=== PATIENT | female | born 1950 | race Caucasian/White ===

== ENCOUNTER 2017-01-22 19:51 | Observation (INO) ==
[2017-01-22] MEDS ORDERED: SODIUM CHLORIDE 0.9% 500 ML IV STA (20:58)
[2017-01-22] MEDS ORDERED: MORPHINE 2 MG/1 ML SYRINGE IV STA (20:58)
[2017-01-22] MEDS ORDERED: PANTOPRAZOLE 40 MG VIAL IV STA (20:58)
[2017-01-22] MEDS ORDERED: NITROGLYCERIN 2% OINT 1 INCH/GM PACK TOP STA (20:58)
[2017-01-22] MEDS ORDERED: ONDANSETRON 4 MG/2 ML VIAL IV STA (20:58)
[2017-01-22] MEDS ORDERED: ALUM/MAG/SIMETH/LIDO VISC 1:1 30 ML BOTTLE PO STA (20:58)
[2017-01-22] MEDS ORDERED: ASPIRIN 325 MG TABLET PO STA (20:58)
[2017-01-22] MEDS ORDERED: METOPROLOL TARTRATE 25 MG TABLET PO STA (20:58)
--- NOTE | 2017-01-22 21:04 | EKG Report ---
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
[2017-01-22 21:17] LABS: Basophils # 0.1 10*3/uL (0.0-0.2); Basophils % 0.5 % (0.0-0.8); Eosinophils # 0.2 10*3/uL (0.0-0.87); Eosinophils % 1.9 % (0.00-10.9); Hematocrit 40.4 VOL% (35.7-47.0); Hemoglobin 13.8 GM/DL (12.0-16.0); Immature Granulocytes % 0.4 %; Immature Granulocytes Absolute 0.04 #; Lymphocytes # 1.9 10*3/uL (1.4-4.0); Lymphocytes % 20.3 % (21.3-54.2); Mean Corpuscular HGB Conc 34.2 GM/DL (32-36); Mean Corpuscular Hemoglobin 31 PG (27-34); Mean Platelet Volume 10.3 FL (9.6-12.0); Monocytes # 0.7 10*3/uL (0.11-0.8); Monocytes % 7.5 % (1.7-12.7); Neutrophils # 6.6 10*3/uL (1.4-7.4); Neutrophils % 69.4 % (38.7-73.9); Platelet Count 297 T/CUMM (130-400); Red Blood Count 4.39 MC/CUMM (3.8-5.5); White Blood Count 9.5 T/CUMM (4-12)
[2017-01-22 21:21] LABS: Alanine Aminotransferase 26 U/L (13-56); Albumin 3.9 G/DL (3.4-5.0); Alkaline Phosphatase 137 U/L (45-117); Aspartate Amino Transferase 19 U/L (0-37); Bilirubin,Total < 0.39 MG/DL (0.2-1.0); Blood Urea Nitrogen 12 MG/DL (7-18); Calcium 9.3 MG/DL (8.5-10.1); Glucose 136 MG/DL (74-106); Magnesium 2.4 MG/DL (1.8-2.4); Osmolality,Calculated 284.1 MOS/KG (273-304); Potassium 3.5 MMOL/L (3.5-5.1); Sodium 142 MMOL/L (136-145); Total Protein 7.5 G/DL (6.4-8.3)
[2017-01-22 21:26] LABS: D-Dimer 0.6 MG/L FEU; PT Patient Result 10.3 SECS
--- NOTE | 2017-01-22 21:32 | XRay Report ---
History: Chest pain Date: 01/22/2017 Study: Chest x-ray PA and lateral Comparison exam: September 02, 2010 The cardiac silhouette is not enlarged. The mediastinal contours are unchanged. The pulmonary vasculature is not engorged. The lungs are slightly hyperexpanded with some scattered emphysematous changes in the lungs. There is no acute infiltrate. There is no pleural effusion. Osseous structures are similar with mild thoracic spondylosis and suspected osteopenia. Impression: The lungs are slightly hyperexpanded as can be seen with COPD. There is no acute process compared to the previous study PROCEDURE INTERPRETED AT [facility] DEPARTMENT OF RADIOLOGY Final Report Signed by: Dr. Shirley Cabrera
[2017-01-22] MEDS ORDERED: NITROGLYCERIN 2% OINT 1 INCH/GM PACK TOP ONE (21:33)
[2017-01-22] MEDS ORDERED: PANTOPRAZOLE 40 MG VIAL IV ONE (21:33)
[2017-01-22] MEDS ORDERED: METOPROLOL TARTRATE 25 MG TABLET ONE (21:34)
[2017-01-22] MEDS ORDERED: ONDANSETRON 4 MG/2 ML VIAL ONE (21:34)
[2017-01-22] MEDS ORDERED: ASPIRIN 325 MG TABLET ONE (21:35)
[2017-01-22] MEDS ORDERED: ALUM/MAG/SIMETH/LIDO VISC 1:1 30 ML BOTTLE PO ONE (21:35)
[2017-01-22] MEDS ORDERED: MORPHINE 2 MG/1 ML SYRINGE ONE (21:35)
--- NOTE | 2017-01-22 22:27 | Emergency Department Note ---
ILea Emily, am scribing for, and in the presence of, Davion Barber MD 20: 59. IElisabeth Charles R, MD, personally performed the services described in this documentation, ascribed by Maria Isabel Tate in my presence, and it is both accurate and complete 227 . Arrival - Arrival Chief Complaint: Arrhythmia/Palpitations Stated Complaint: heart flutters ED Nursing Triage Note: pt states she is having some chest pressure and her heart feels like it fluttering. started about 3 months ago but today has chest discomfort Mode of Arrival: Ambulatory Limitations: No Limitations Source: Patient (k) Time Seen by Provider: 01/22/17 20:37 - History of Present Illness HPI Narrative: Pt is a 66 y/o female who came to ED with c/o "heart fluttering" that have been ongoing for a 3 months now. Pt states she doesn't have chest pain, just pressure sensation and notes "feeling funny" recently that started today, which was cause for concern to come in. Pt notes having pain in between shoulder blades and jawline numbness past few days. Pt notes that Thursday she was extremely hot and her GERD has come on more than nml. Pt takes transzene, aspirin, generic nexium. She reports having stress test years ago with nml results. Onset (ago): month(s) Consistency: constant Severity: mild Severity scale (1-10): 3 Quality: aching (pressure), other (racing) Date of Last Menstrual Period: hysty Allergies/Adverse Reactions: Allergies Allergy/AdvReac Type Severity Reaction Status Date / Time acetaminophen [From Lortab] Allergy Unknown Verified 07/15/16 15:12 ciprofloxacin [From Cipro] Allergy Unknown Verified 07/15/16 15:12 Gatifloxacin [From Tequin] Allergy Unknown Verified 07/15/16 15:12 hydrocodone [From Lortab] Allergy Unknown Verified 07/15/16 15:12 levofloxacin [From Levaquin] Allergy Unknown Verified 07/15/16 15:12 nitrofurantoin Allergy Unknown Verified 07/15/16 15:11 [From Macrobid] Home Medications: Home Medications Medication Instructions Recorded Confirmed Type Aspirin EC Tab 81 mg PO DAILY 01/22/17 01/22/17 History Clorazepate [Tranxene] 3.75 mg PO DAILY PRN 01/22/17 01/22/17 History Esomeprazole Magnesium [Nexium] 20 mg PO DAILY 01/22/17 01/22/17 History Review of System - Review of System 12 point system: reviewed and no additional remarkable complaints except as stated - Review of System Constitutional: Present: weakness ("feeling funny"). Absent: chills, fever Respiratory: Absent: cough, respiratory distress Cardiovascular: Present: palpitations ("heart flutters"). Absent: chest pain ( just chest pressure) Gastrointestinal: Absent: abdominal pain, nausea, vomiting Genitourinary female: Absent: dysuria Musculoskeletal: Present: upper back pain (between shoulder blades). Absent: arm pain, leg pain, neck pain Skin: Absent: rash Neurological: Present: numbness (jawline). Absent: headache, paresthesias, confusion Medical,Surgical,& Family Hx - Surgical History Surgical History: noncontributory - Family History Family History: noncontributory - Social History Smoking Status: Never smoker Frequency of Alcohol Use: None Type of Drug Use: None Marital Status: Lives With:: Spouse Functional capacity: independent ambulation Exam Vital Signs: Vital Signs Temperature 98.9 F 01/22/17 20:38 Pulse Rate 78 01/22/17 20:38 Respiratory Rate 20 01/22/17 20:38 Blood Pressure 169/100 01/22/17 20:38 O2 Sat by Pulse Oximetry 100 01/22/17 19:57 - General General appearance: alert, in no apparent distress - Head Head exam: Present: atraumatic, normocephalic - Eye Eye exam: Present: PERRL, EOMI - ENT ENT exam: Present: mucous membranes moist. Absent: mucous membranes dry - Neck Neck exam: Present: full ROM. Absent: tenderness - Chest Chest inspection: Present: symmetric chest wall rise. Absent: tenderness - Respiratory Respiratory exam: Present: normal lung sounds bilaterally. Absent: respiratory distress - Cardiovascular Cardiovascular exam: Present: irregular rhythm (slightly), normal heart sounds - Abdominal Exam Abdominal exam: Present: soft. Absent: tenderness - Extremities Exam Extremities exam: Present: full ROM. Absent: tenderness, pedal edema - Back Exam Back exam: Present: full ROM, tenderness (at mid back of T12) - Neurological Exam Neurological exam: Present: alert, oriented X3, CN II-XII intact. Absent: motor sensory deficit - Psychiatric Psychiatric exam: Present: normal affect, normal mood - Skin Skin exam: Present: warm, dry Course - Consultations Consultation #1: Hospitalist will admit patient Time: 22:35 Results - Labs CBC & BMP: 01/22/17 20:42 01/22/17 20:42 Lab Results: I have reviewed the patients labs Labs: Laboratory Tests 01/22/17 01/22/17 20:42 20:42 Lymph % (Auto) 20.3 L Glucose 136 H Alkaline Phosphatase 137 H Globulin 3.6 H Albumin/Globulin Ratio 1.0 L Laboratory Tests 01/22/17 20:42 B-Natriuretic Peptide 13 - EKG EKG results: interpreted by KIA, sinus rhythm (77) - Diagnostic Findings Procedure: Chest x-ray: report reviewed by me (The lungs are slightly hyperexpanded as can be seen with COPD. There is no acute process compared to the previous study.) Disposition Clinical Impression: Palpitations, Anxiety, Atypical chest pain Case discussed with: patient, patient's family Disposition: Still a Patient Condition: Stable Time of Disposition: 22:36
[2017-01-22] MEDS ORDERED: ONDANSETRON 4 MG/2 ML VIAL IV PRN (23:36)
[2017-01-22] MEDS ORDERED: CLORAZEPATE 3.75 MG TABLET PO PRN (23:42)
[2017-01-22] MEDS ORDERED: ENOXAPARIN 40 MG/0.4 ML SYRINGE SUBCUT SCH (23:45)
--- NOTE | 2017-01-22 23:46 | Hospitalist History & Physical ---
Assessment and Plan (1) Palpitations Status: Acute Current Visit: Yes (2) Anxiety Status: Acute Current Visit: Yes (3) Atypical chest pain Status: Acute Assessment and plan: Our plan for this patient will be admitting her to telemetry. Draw serial cardiac enzymes consult cardiology continue home meds as appropriate check a fasting lipid profile Current Visit: Yes History of Present Illness Chief complaint: Palpitations History of present illness: Ms. Moore is a 66 year old female with past medical history significant for obstructive sleep apnea reflux anxiety who was in her normal state of health for the past few days. Patient reports from time to time she has developed a chest pressure. It radiates to her back. She does not get diaphoretic but she does get short of breath. It is associated with exertion. Sometimes he has an sensation that her heart racing. She came up to our hospital for further evaluation I was consulted to admit her through the emergency room Home Medications Medication Instructions Recorded Confirmed Type Aspirin EC Tab 81 mg PO DAILY 01/22/17 01/22/17 History Clorazepate [Tranxene] 3.75 mg PO DAILY PRN 01/22/17 01/22/17 History Esomeprazole Magnesium [Nexium] 20 mg PO DAILY 01/22/17 01/22/17 History Allergies Allergy/AdvReac Type Severity Reaction Status Date / Time acetaminophen [From Lortab] Allergy Unknown Verified 07/15/16 15:12 ciprofloxacin [From Cipro] Allergy Unknown Verified 07/15/16 15:12 Gatifloxacin [From Tequin] Allergy Unknown Verified 07/15/16 15:12 hydrocodone [From Lortab] Allergy Unknown Verified 07/15/16 15:12 levofloxacin [From Levaquin] Allergy Unknown Verified 07/15/16 15:12 nitrofurantoin Allergy Unknown Verified 07/15/16 15:11 [From Macrobid] Medical,Surgical,& Family Hx - Medical History Other: History of: Miscellaneous Medical Problems (Obstructive sleep apnea, reflux and anxiety) - Surgical History Abdominal Surgeries: Surgical HX of: Cholecystectomy Reproductive Surgeries: Surgical HX of;: Hysterectomy - Family History Family History: Reports;: Family Cancer - Social History Smoking Status: Never smoker Frequency of Alcohol Use: None Type of Drug Use: None 12 point system: reviewed and no additional remarkable complaints except as stated Exam - Constitutional Vitals: Period Temp Pulse Resp BP Sys/Smith Pulse Ox Last 24 Hr 98.9 F-98.9 F 78-78 18-20 169-169/100-100 100 - General General appearance: alert, in no apparent distress - Head Head exam: Present: atraumatic, normocephalic - Eye Eye exam: Present: PERRL, EOMI - ENT ENT exam: Present: mucous membranes moist. - Neck Neck exam: Present: full ROM. Absent: tenderness - Chest Chest inspection: Present: symmetric chest wall rise. - Respiratory Respiratory exam: Present: normal lung sounds bilaterally - Cardiovascular Cardiovascular exam: Present: Regular rhythm with a regular rate currently - Abdominal Exam Abdominal exam: Present: soft. - Extremities Exam Extremities exam: Present: full ROM. - Back Exam Back exam: Present: full ROM, - Neurological Exam Neurological exam: Present: alert, oriented X3, CN II-XII intact. - Psychiatric Psychiatric exam: Present: normal affect, normal mood - Skin Skin exam: Present: warm, dry Results - Labs CBC & BMP: 01/22/17 20:42 01/22/17 20:42
[2017-01-23] MEDS: NITROGLYCERIN 2% OINT 1 INCH/GM PACK TOP SCH ×3 (00:15→11:23)
[2017-01-23 03:11] LABS: Calcium 8.5 MG/DL (8.5-10.1); Osmolality,Calculated 284.8 MOS/KG (273-304); Risk Ratio 3.31
--- NOTE | 2017-01-23 07:16 | EKG Report ---
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
[2017-01-23] MEDS ORDERED: PANTOPRAZOLE 40 MG TABLET PO SCH (09:00)
[2017-01-23] MEDS ORDERED: ASPIRIN EC 325 MG TABLET PO SCH (09:00)
--- NOTE | 2017-01-23 10:13 | Cardiology Consult Note ---
I, Malathi Dawson RN, am scribing for, and in the presence of, Delonte Aguilar MD 10 :12. Assessment and Plan - Time spent with patient Time spent with patient: Greater than 30 minutes (Assessment, planning, documentation, medication review) (1) Atypical chest pain Status: Acute Assessment and plan: 66-year-old female, presenting with intermittent palpitations, which are getting more frequent, associated with atypical chest pain. JAQUAN, was recently started on CPAP. Anxiety. Faint systolic murmur. -Echo. -Stress test -Lipids normal. Check TFTs. -Cont ASA -If tests low risk, may be discharged later home today, with a Holter monitor. I would initiate beta-hallie in this case. -Palpitations happen almost daily, but was not captured EKG so far and telemetry was benign -She is planning to establish care with Dr. Mayfield. 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 Gilbert because her sees him PCP: Dr. Lagos Ms. Moore is a 66 year old female with history of obstructive sleep apnea, reflux, and anxiety. She was recently diagnosed with sleep apnea this past winter and reports she is her CPAP nightly. She reports she has never seen a door fitter in the past and has never had a heart catheterization. She does report that she had a stress test done many years ago and was told the results were normal. I do not have access to those records. Surgical history includes cholecystectomy, hysterectomy, appendectomy, and right wrist. Family history is positive for mother and father with cancer and grandmother with heart disease and diabetes. She reports she is a lifetime non-smoker. She reports she has been fatigued for quite some time now. She says this led to her being diagnosed with sleep apnea, but since using the CPAP she cannot tell much difference in her symptoms. She reports about 3 months ago she began having episodes where she felt as though her heart was racing and skipping beats. Several weeks ago she began to have some chest discomfort that she describes as a dull, tight sensation. It goes all the way across her chest. She says she has some back pain with this, but she cannot tell if the pain is radiating to her back or if this is a separate pain. She reports the pain is intermittent and will last up to a few hours at a time. She rates it a 5 on a scale of 1-10 when at its worst. The pain is nonreproducible, she can identify any specific triggers or alleviators. She reports having more dyspnea on exertion than normal for her recently, but states this is not associated with the chest discomfort. She says her chest discomfort and her heart racing do not necessarily coincide with each other. She also reports intermittently having a numb sensation from her right ear around her right jawline to her chin. Yesterday her palpitations and chest discomfort became worse so she presented to the emergency department for further evaluation. She says in the past she has had a hard time deciding if it was reflux or something else, but yesterday the pain and palpitations felt different from her reflux. EKG on admission showed sinus rhythm with heart rate of 77. Blood pressure was elevated at 169/100. She was given Lopressor 25 mg p.o. 1 dose in the emergency department. She was also given a GI cocktail, Nitro-Bid paste, aspirin, morphine, and Protonix, she states her pain was relieved while in the emergency department. Troponin has been negative 3. Chest x-ray with no acute pathology noted. She states she had some pain off and on during the night, but denies any pain at this time. She is resting in bed in no acute distress and reports she is not short of breath at this time. She denies any palpitations currently. 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 Her blood pressure has come down, earlier this morning it was 92/48. CC: Maximo Khoury Jr., MD - Home Medications and Allergies Home Medications: Home Medications Medication Instructions Recorded Confirmed Type Aspirin EC Tab 81 mg PO DAILY 01/22/17 01/23/17 History Clorazepate [Tranxene] 3.75 mg PO DAILY PRN 01/22/17 01/23/17 History Esomeprazole Magnesium [Nexium] 20 mg PO DAILY 01/22/17 01/23/17 History Allergies/Adverse Reactions: Allergies Allergy/AdvReac Type Severity Reaction Status Date / Time acetaminophen [From Lortab] Allergy Unknown Verified 07/15/16 15:12 ciprofloxacin [From Cipro] Allergy Unknown Verified 07/15/16 15:12 Gatifloxacin [From Tequin] Allergy Unknown Verified 07/15/16 15:12 hydrocodone [From Lortab] Allergy Unknown Verified 07/15/16 15:12 levofloxacin [From Levaquin] Allergy Unknown Verified 07/15/16 15:12 nitrofurantoin Allergy Unknown Verified 07/15/16 15:11 [From Macrobid] - Constitutional Constitutional: Present: as per HPI - EENT Eyes: Present: requires corrective lense. Absent: blurry vision Ears: Absent: decreased hearing, ear pain, tinnitus Nose, mouth and throat: Present: epistaxis (She had one episode that she thinks was related to sinus and/or CPAP), headache(s), neck pain. Absent: dysphagia - Cardiovascular Cardiovascular: Present: chest pain at rest, dyspnea on exertion, palpitations. Absent: diaphoresis, edema, radiating jaw, neck or arm pain, lightheadedness, orthopnea - Respiratory Respiratory: Present: cough, dyspnea on exertion. Absent: dyspnea, hemoptysis, wheezing - Gastrointestinal Gastrointestinal: Present: constipation. Absent: abdominal pain, diarrhea, hematemesis, hematochezia, melena, nausea, vomiting - Genitourinary Genitourinary: Absent: dysuria, hematuria - Musculoskeletal Musculoskeletal: Present: back pain. Absent: limited range of motion, muscle weakness - Neurological Neurological: Present: headache(s), numbness (Right ear around her jawline to her chin). Absent: abnormal gait, abnormal speech, confusion, dizziness, frequent falls, syncope - Psychiatric Psychiatric: Present: anxiety. Absent: depression - Endocrine Endocrine: Present: fatigue - Hematologic/Lymphatic Hematologic/Lymphatic: Present: easy bruising. Absent: easy bleeding Medical,Surgical,& Family Hx - Medical History Psychological: History of: Anxiety Disorders Respiratory: History of: Obstructive Sleep Apnea (Uses CPAP) Gastrointestinal: History of: GERD - Surgical History Abdominal Surgeries: Surgical HX of: Appendectomy, Cholecystectomy Reproductive Surgeries: Surgical HX of;: Hysterectomy Orthopedic Surgeries: Surgical HX of;: Orthopedic Surgery (Right wrist) - Family History Family History: Reports;: Family Cancer (Father-leukemia, Mom-Stomach Cancer), Family Diabetes (Grandmother), Family Heart Disease (Grandmother) - Social History Smoking Status: Never smoker Have you smoked in the last 12 months: No Frequency of Alcohol Use: None Type of Drug Use: None Marital Status: Lives With:: Spouse Functional capacity: independent ambulation Physical Examination Vital Signs Temp Pulse Resp BP Pulse Ox 98.9 F 78 20 169/100 100 01/22/17 19:57 01/22/17 19:57 01/22/17 19:57 01/22/17 19:57 01/22/17 19:57 General: Present: Appears Well, No Apparent Distress HEENT: Present: PERRL, Mucus Membranes Moist Neck: Present: Supple Neck, Midline Trachea, No Bruit Cardiac: Present: Reg Rate and Rhythm, No Murmur, Bradycardia. Absent: Tachycardia Lungs: Present: Normal Breath Sounds, No Wheeze, Rales, Rhonchi Neuro: Present: Numbness (From her right ear around her jawline to her chin). Absent: Weakness, Resting Tremor, Essential Tremor Abdomen: Present: Soft, Active Bowel Sounds, Non-Tender. Absent: Distended Skin: Absent: Rash, Suspicious Lesions Musculoskeletal: Present: No Pain, Normal Range of Motion Gait: Present: Normal Gait Extremities: Present: Normal Gait, No Edema, Normal Upper Extr. Pulses, Normal Lower Extr. Pulses Result/EKG - Labs CBC & BMP: 01/22/17 20:42 01/23/17 02:13 Lab Results: I have reviewed the past 24 hour labs Labs: Laboratory Results - last 24 hr 01/22/17 01/22/17 01/22/17 20:42 20:42 20:42 WBC RBC Hgb Hct MCV MCH MCHC RDW Plt Count MPV Neut % (Auto) Lymph % (Auto) [place] % (Auto) Eos % (Auto) Baso % (Auto) Neut # (Auto) Lymph # (Auto) [place] # (Auto) Eos # (Auto) Baso # (Auto) Immature Gran % Nucleated RBC % Immature Gran # Nucleated RBCs # INR 1.0 PT Patient/Control Mix 10.3 D-Dimer, Quantitative 0.6 Sodium 142 Potassium 3.5 Chloride 105 Carbon Dioxide 28 Anion Gap 12.5 BUN 12 Creatinine 1.00 GFR Calculation 54 BUN/Creatinine Ratio 12.00 Glucose 136 H Calculated Osmolality 284.1 Calcium 9.3 Magnesium 2.4 Total Bilirubin < 0.39 AST 19 ALT 26 Alkaline Phosphatase 137 H Troponin I B-Natriuretic Peptide 13 Total Protein 7.5 Albumin 3.9 Globulin 3.6 H Albumin/Globulin Ratio 1.0 L Triglycerides Cholesterol LDL Cholesterol VLDL Cholesterol HDL Cholesterol Heart Disease Risk Ratio Lipase 153.0 01/22/17 01/22/17 01/22/17 20:42 20:42 23:58 WBC 9.5 RBC 4.39 Hgb 13.8 Hct 40.4 MCV 92.0 MCH 31 MCHC 34.2 RDW 13.0 Plt Count 297 MPV 10.3 Neut % (Auto) 69.4 Lymph % (Auto) 20.3 L [place] % (Auto) 7.5 Eos % (Auto) 1.9 Baso % (Auto) 0.5 Neut # (Auto) 6.6 Lymph # (Auto) 1.9 [place] # (Auto) 0.7 Eos # (Auto) 0.2 Baso # (Auto) 0.1 Immature Gran % 0.4 Nucleated RBC % 0.0 Immature Gran # 0.04 Nucleated RBCs # 0.00 INR PT Patient/Control Mix D-Dimer, Quantitative Sodium Potassium Chloride Carbon Dioxide Anion Gap BUN Creatinine GFR Calculation BUN/Creatinine Ratio Glucose Calculated Osmolality Calcium Magnesium Total Bilirubin AST ALT Alkaline Phosphatase Troponin I < 0.015 < 0.015 B-Natriuretic Peptide Total Protein Albumin Globulin Albumin/Globulin Ratio Triglycerides Cholesterol LDL Cholesterol VLDL Cholesterol HDL Cholesterol Heart Disease Risk Ratio Lipase 01/23/17 01/23/17 02:13 02:13 WBC RBC Hgb Hct MCV MCH MCHC RDW Plt Count MPV Neut % (Auto) Lymph % (Auto) [place] % (Auto) Eos % (Auto) Baso % (Auto) Neut # (Auto) Lymph # (Auto) [place] # (Auto) Eos # (Auto) Baso # (Auto) Immature Gran % Nucleated RBC % Immature Gran # Nucleated RBCs # INR PT Patient/Control Mix D-Dimer, Quantitative Sodium 144 Potassium 4.0 Chloride 110 H Carbon Dioxide 26 Anion Gap 12.0 BUN 11 Creatinine 0.80 GFR Calculation 71 BUN/Creatinine Ratio 13.00 Glucose 97 Calculated Osmolality 284.8 Calcium 8.5 Magnesium Total Bilirubin AST ALT Alkaline Phosphatase Troponin I < 0.015 B-Natriuretic Peptide Total Protein Albumin Globulin Albumin/Globulin Ratio Triglycerides 65 Cholesterol 179 LDL Cholesterol 98.0 VLDL Cholesterol 13.0 HDL Cholesterol 54 Heart Disease Risk Ratio 3.31 Lipase - Diagnostic Findings Procedure: Chest x-ray: report reviewed by me - EKG EKG results: interpreted by me EKG shows: sinus rhythm Lauren Faith Attila, MD, personally performed the services described in this documentation, ascribed by Malathi Dawson RN in my presence, and it is both accurate and complete .
--- NOTE | 2017-01-23 11:34 | Event Note ---
Underwent cardiolyte stress testing, achieving 100% predicted target heart rate without complaints of chest pain, heaviness or tightness. Good exercise tolerance at 9.1 METs. No arrythmia, no ST changes. Blood pressure responded appropriately. Now, to nuclear medicine for completion of final scan. Dr. Aguilar to read, interpret and advise.
--- NOTE | 2017-01-23 15:03 | ECHO Report ---
Ary Moore 01/23/2017 Exam Date: 11:32 Referring Physician: Aminah Bean Technologist: NERIS Age: 66 Ht (in): 53 Wt (lb): 122 FExam Location: [facility] Gender: Echo [id number]: chest pain, palp, murmur, JAQUAN, anxietyIndications: BP: 117 / 69 HR: 54 SinusRhythm: Technical Quality: IMPRESSIONS Normal left ventricular cavity size. Normal systolic function, no hypertrophy. Estimated left ventricular ejection fraction 60%. Normal diastolic function. Mildly dilated right-sided heart chambers, with normal right ventricular systolic function, with normal pulmonary pressure. Borderline prolapse of the anterior mitral valve leaflet. The posterior leaflet is not well visualized. Mild eccentric mitral valve regurgitation. MEASUREMENTS (Male / Female) Normal Values 2D ECHO LV Diastolic Diameter PLAX 3.8 cm 4.2 - 5.9 / 3.9 - 5.3 cm LV Systolic Diameter PLAX 2.1 cm LV Fractional Shortening PLAX 44.7 % IVS Diastolic Thickness 1.0 cm 0.6 - 1.0 / 0.6 - 0.9 cm LVPW Diastolic Thickness 1.1 cm 0.6 - 1.0 / 0.6 - 0.9 cm RV Internal Dim ED PLAX 3.1 cm Aortic Root Diameter 2.5 cm LA Systolic Diameter LX 2.5 cm 3.0 - 4.0 / 2.7 - 3.8 cm DOPPLER TR Peak Velocity 213.0 cm/s TR Peak Gradient 18.1 mmHg FINDINGS Left Ventricle Normal left ventricular cavity size. Normal systolic function, no hypertrophy. Estimated left ventricular ejection fraction 60%. Normal diastolic function. Right Ventricle The right ventricle is mildly dilated, with normal systolic function. Right Atrium The right atrium is mildly enlarged. Left Atrium The left atrium is normal in size. Mitral Valve Borderline prolapse of the anterior mitral valve leaflet. The posterior leaflet is not well visualized. Mild eccentric mitral valve regurgitation. Aortic Valve Structurally normal aortic valve, without stenosis or insufficiency. Tricuspid Valve Morphologically normal tricuspid valve. Mild tricuspid valve regurgitation. Tricuspid regurgitation velocities suggest a PAP of 28 mmHg. Pulmonic Valve Morphologically normal pulmonic valve. Trace pulmonary valve regurgitation. Pericardium No pericardial effusion. Aorta Normal size aortic root and proximal ascending aorta. Delonte Aguilar (Electronically Signed) 23 January 2017 Final Date: 15:01
--- NOTE | 2017-01-23 15:09 | Event Note ---
Echo showed no significant structural heart disease, she has borderline mitral valve prolapse and mild MR. The stress test was negative for ischemia. She may be discharged with a Holter monitor to work up intermittent palpitations , then follow-up with Dr. Gilbert, she was planning to establish care with him next week.
[2017-01-23 16:00] VITALS: BP 105/51
--- NOTE | 2017-01-23 16:52 | Discharge Summary ---
Hospital Course - Hospital Course Hospital Course: This hospitalization included patient admitted for atypical chest pain shortness of breath. She had serial cardiac enzymes which were unremarkable. She had an echocardiogram with an EF of 60%. Moreover stress test was unremarkable. Recommendations from cardiology for is for Holter monitor and further follow-up with Dr. Mayfield. She has been hemodynamically stable and afebrile. She has reached maximal hospitalization and is prepared for discharge. She will follow with Dr. Mayfield as well as her primary provider Dr. Mckeon. - Time spent with patient Time with patient DS: Greater than 30 minutes (35 minutes) Diagnosis - Discharge Diagnosis (1) Palpitations Status: Resolved (2) Anxiety Status: Chronic (3) Atypical chest pain Status: Resolved (4) JAQUAN on CPAP Status: Chronic Discharge Plan - Discharge Data Disposition: Disch To Home/Self Care Condition at Discharge: Stable Discharge Diet: advance to your usual diet Activity: resume usual activities as tolerated Hygiene: no restrictions Driving: no restrictions Contact your physician if you experience:: fever over 101 - Discharge Medications Continue Esomeprazole Magnesium [Nexium] 20 mg PO DAILY Aspirin EC Tab 81 mg PO DAILY Clorazepate [Tranxene] 3.75 mg PO DAILY PRN PRN Reason: Anxiety - Follow Up or Referral - Forms/Instructions Additional Discharge Instructions: Follow with Dr. Mayfield as scheduled. Follow- up with her primary provider Dr. Mckeon next Thursday. Exam - Constitutional Vitals: Period Temp Pulse Resp BP Sys/Smith Pulse Ox Last 24 Hr 97.2 F-98.9 F 54-78 16-20 92-169/48-100 94-100 General appearance: normal weight - Head Head exam: Present: normal inspection - ENT ENT exam: Present: normal exam - Neck Neck exam: Present: normal inspection - Cardiovascular Cardiovascular exam: Present: regular rate and rhythm - GI/Abdominal GI/Abdominal exam: Present: normal bowel sounds - Extremities Exam Extremities exam: Present: normal inspection - Back Exam Back exam: Present: normal inspection - Neurological Exam Neurological exam: Present: alert, oriented X3, CN II-XII intact - Psychiatric Psychiatric exam: Present: normal affect, normal mood - Skin Skin exam: Present: normal color Discharge Results Procedures and tests throughout hospitalization: Pending Orders 01/23/17 10:10 NM jazmín perf SPECT rest or str Routine Labs on day of discharge: Labs from last 24 hours 01/23/17 01/23/17 01/22/17 02:13 02:13 23:58 WBC RBC Hgb Hct MCV MCH MCHC RDW Plt Count MPV Neut % (Auto) Lymph % (Auto) Buchanan % (Auto) Eos % (Auto) Baso % (Auto) Neut # (Auto) Lymph # (Auto) Buchanan # (Auto) Eos # (Auto) Baso # (Auto) Immature Gran % Nucleated RBC % Immature Gran # Nucleated RBCs # INR PT Patient/Control Mix D-Dimer, Quantitative Sodium 144 Potassium 4.0 Chloride 110 H Carbon Dioxide 26 Anion Gap 12.0 BUN 11 Creatinine 0.80 GFR Calculation 71 BUN/Creatinine Ratio 13.00 Glucose 97 Calculated Osmolality 284.8 Calcium 8.5 Magnesium Total Bilirubin AST ALT Alkaline Phosphatase Troponin I < 0.015 < 0.015 B-Natriuretic Peptide Total Protein Albumin Globulin Albumin/Globulin Ratio Triglycerides 65 Cholesterol 179 LDL Cholesterol 98.0 VLDL Cholesterol 13.0 HDL Cholesterol 54 Heart Disease Risk Ratio 3.31 Lipase 01/22/17 01/22/17 01/22/17 20:42 20:42 20:42 WBC 9.5 RBC 4.39 Hgb 13.8 Hct 40.4 MCV 92.0 MCH 31 MCHC 34.2 RDW 13.0 Plt Count 297 MPV 10.3 Neut % (Auto) 69.4 Lymph % (Auto) 20.3 L Buchanan % (Auto) 7.5 Eos % (Auto) 1.9 Baso % (Auto) 0.5 Neut # (Auto) 6.6 Lymph # (Auto) 1.9 Buchanan # (Auto) 0.7 Eos # (Auto) 0.2 Baso # (Auto) 0.1 Immature Gran % 0.4 Nucleated RBC % 0.0 Immature Gran # 0.04 Nucleated RBCs # 0.00 INR PT Patient/Control Mix D-Dimer, Quantitative Sodium Potassium Chloride Carbon Dioxide Anion Gap BUN Creatinine GFR Calculation BUN/Creatinine Ratio Glucose Calculated Osmolality Calcium Magnesium Total Bilirubin AST ALT Alkaline Phosphatase Troponin I < 0.015 B-Natriuretic Peptide 13 Total Protein Albumin Globulin Albumin/Globulin Ratio Triglycerides Cholesterol LDL Cholesterol VLDL Cholesterol HDL Cholesterol Heart Disease Risk Ratio Lipase 01/22/17 01/22/17 20:42 20:42 WBC RBC Hgb Hct MCV MCH MCHC RDW Plt Count MPV Neut % (Auto) Lymph % (Auto) Buchanan % (Auto) Eos % (Auto) Baso % (Auto) Neut # (Auto) Lymph # (Auto) Buchanan # (Auto) Eos # (Auto) Baso # (Auto) Immature Gran % Nucleated RBC % Immature Gran # Nucleated RBCs # INR 1.0 PT Patient/Control Mix 10.3 D-Dimer, Quantitative 0.6 Sodium 142 Potassium 3.5 Chloride 105 Carbon Dioxide 28 Anion Gap 12.5 BUN 12 Creatinine 1.00 GFR Calculation 54 BUN/Creatinine Ratio 12.00 Glucose 136 H Calculated Osmolality 284.1 Calcium 9.3 Magnesium 2.4 Total Bilirubin < 0.39 AST 19 ALT 26 Alkaline Phosphatase 137 H Troponin I B-Natriuretic Peptide Total Protein 7.5 Albumin 3.9 Globulin 3.6 H Albumin/Globulin Ratio 1.0 L Triglycerides Cholesterol LDL Cholesterol VLDL Cholesterol HDL Cholesterol Heart Disease Risk Ratio Lipase 153.0 DS: Provider Date of admission: 01/22/17 22:50 Primary care physician: Memo Lagos MD Attending physician on admission: Manuel Sanderson MD Consults: 01/22/17 23:41 Consult to Physician [CONS] Routine Comment: Consulting Provider: Cardiology - [facility] Consult to Specialist Group: Cardiology When should Consulting Provider be notified: In am Person Notified: Arnel Date Notified: 01/23/17 Time Notified: 07:40 01/23/17 12:46 Consult to Sleep Center [CONS] Routine Reason for Sleep Center: Technologist Assist Consult Comment: mask doesnt fit properly Discharging clinician: Maximo Khoury Jr., MD
--- NOTE | 2017-01-23 17:51 | Nuclear Medicine Report ---
NUCLEAR EXERCISE STRESS TEST Stress test interpreted by Dr. Delonte Aguilar. INDICATION: Chest pain. PROCEDURE: At rest, 10 mCi of 99-Technetium labeled Sestamibi was injected and rest images were obtained. The patient then exercised according to the Jon treadmill stress workload. At peak stress, 30 mCi of 99-Technetium labeled Sestamibi was injected and post-stress images were obtained. FINDINGS: At rest, sinus rhythm, 64 beats per minute, blood pressure 122/[address]-T changes. The patient exercised for 7 minutes and 53 seconds, achieving 8.7 METS. The heart rate rossy to 148 beats per minute, 94% of the predicted maximum heart rate. The blood pressure rossy to 132/62 mmHg. There was no chest pain. No significant arrhythmia was encountered. The test was stopped due to achieving the peak submaximal predicted heart rate. Gated and perfusion rest and post stress images were reviewed. There are no significant motion artifacts. The left ventricle is normal in size, end-diastolic volume is 48 cc, end-systolic volume is 13 cc, and the calculated left ventricular ejection fraction 73%. There is normal systolic thickening in all segments. Perfusion images show a small area of mildly decreased activity in the apical region, which improved post stress, suggestive of imaging artifact. CONCLUSION: 1. CLINICALLY AND ELECTRICALLY NEGATIVE SUBMAXIMAL EXERCISE STRESS TEST. COOPER TREADMILL STRESS SCORE 8. 2. NORMAL LEFT VENTRICLE SIZE, NORMAL SYSTOLIC FUNCTION, NO EVIDENCE OF MYOCARDIAL ISCHEMIA OR OLD DISEASE. 3. THIS IS A LOW-RISK TEST. Procedure performed and interpreted at [facility] Department of Radiology. [facility]
== END 2017-01-23 17:40 | disposition home or self-care (01) ==
LOC: N.ED 19:51 → N.EDINP 19:51 → SUATTDRO 22:50 → N.TELES 23:18
PROVIDERS: ADMIT Internal Medicine; ATTEND Internal Medicine Nephrology